=== PATIENT | female | born 1965 | race African-American/Black ===

== ENCOUNTER 2023-07-20 13:23 | Emergency (ER) | payer BC ==
[~2023-07-20] VITALS: Ht 162.6 cm; Wt 72.6 kg
[2023-07-20 13:58] VITALS: BP_SYST 136; PULSE 81; RESP 18; TEMP 98.3; O2SAT 99
[2023-07-20 15:01] LABS: BASOPHILS # (AUTO) 0.1 K/uL (0.0-0.2); BASOPHILS % (AUTO) 0.5 % (0.0-2.0); EOSINOPHILS % (AUTO) 0.2 % (0.0-4.0); HEMATOCRIT 41.8 % (36-48); HEMOGLOBIN 13.3 g/dL (12.0-16.0); LYMPHOCYTES # (AUTO) 1.8 K/uL (1.0-5.5); LYMPHOCYTES % (AUTO) 17.2 % (20.5-51.5); MEAN CORPUSCULAR HEMOGLOBIN 26 pg (27-31); MEAN CORPUSCULAR HGB CONC 32 % (32-36); MEAN CORPUSCULAR VOLUME 81 fL (79.0-98.0); MONOCYTES # (AUTO) 0.7 K/uL (0.0-1.0); MONOCYTES % (AUTO) 6.6 % (1.7-9.3); NEUTROPHILS # (AUTO) 8.1 K/uL (1.8-7.7); NEUTROPHILS % (AUTO) 75.5 % (40.0-70.0); PLATELET COUNT (AUTO) 274 K/uL (130-430); RED BLOOD CELL COUNT(AUTO) 5.17 MIL/uL (4.2-6.2); RED CELL DISTRIBUTION WIDTH 13.8 % (9.0-15.0); WHITE BLOOD COUNT (AUTO) 10.7 K/uL (4.8-10.8)
[2023-07-20] MEDS ORDERED: NACL 0.9% 1,000 ML IV ONE (15:30)
[2023-07-20] MEDS ORDERED: PANTOPRAZOLE SODIUM 40 MG/VIAL (PROTONIX) IVP ONE (15:30)
[2023-07-20] MEDS ORDERED: ONDANSETRON HCL 4 MG/2 ML VIAL IVP ONE (15:30)
[2023-07-20 15:33] LABS: CALCIUM 8.9 mg/dL (8.4-11.0); CREATININE 0.97 mg/dL (0.55-1.30); POTASSIUM 3.5 mmol/L (3.5-5.1)
[2023-07-20 15:37] LABS: ALBUMIN 3.8 g/dL (3.4-4.8); TOTAL BILIRUBIN 0.3 mg/dL (0.0-1.0); TOTAL PROTEIN, SERUM 7.3 g/dL (6.4-8.3)
[2023-07-20 16:22] LABS: BILIRUBIN,URINE NEGATIVE (NEGATIVE); BLOOD, URINE NEGATIVE (NEGATIVE); GLUCOSE,URINE NEGATIVE (NEGATIVE); KETONES,URINE NEGATIVE (NEGATIVE); LEUKOCYTE ESTERASE ,URINE NEGATIVE (NEGATIVE); NITRITE, URINE NEGATIVE (NEGATIVE); PROTEIN URINE NEGATIVE (NEGATIVE); UROBILINOGEN,URINE 0.2 (0.2-1.0)
[2023-07-20 16:23] LABS: COLOR,URINE STRAW (YELLOW)
[2023-07-20 16:35] LABS: PH,URINE 7.5 (5.0-8.0)
[2023-07-20 16:36] LABS: CLARITY/URINE SLIGHTLY HAZY (CLEAR)
[2023-07-20 16:41] LABS: BACTERIA,URINE FEW /HPF (None Seen); MUCUS,URINE None Seen /LPF (None Seen); RBC,URINE NONE SEEN /HPF (0-3); WBC,URINE 0-3 /HPF (0-3)
[2023-07-20] MEDS ORDERED: MECL-292 PO (16:53)
[2023-07-20] MEDS ORDERED: PRO40 PO (16:53)
[2023-07-20] MEDS ORDERED: ONDA-8 TL (16:53)
[2023-07-20 17:05] VITALS: BP_SYST 136; PULSE 81; RESP 18; TEMP 98.3; O2SAT 99
== END 2023-07-20 17:05 | disposition home or self-care (01) ==
LOC: SED 13:23
DX: H81.10 Benign paroxysmal vertigo, unspecified ear (principal); R10.84 Generalized abdominal pain; R10.13 Epigastric pain; Z79.899 Other long term (current) drug therapy
CPT/HCPCS: 99285; 74176; 96374; 96361; 96375; 80053; 81000; 83690; 85025; 36415; 76376; J2405; C9113; J7030